=== PATIENT | female | born 1995 | race Caucasian/White ===

== ENCOUNTER 2021-01-23 12:17 | Emergency (ER) | payer BC, OTHER ==
[~2021-01-23] VITALS: Ht 167 cm; Wt 92.5 kg
--- NOTE | 2021-01-23 12:21 | ED General ---
General Stated Complaint: TACHY History of Present Illness Date Seen by Provider: Jan 23, 2021 Time Seen by Provider: 12:20 Initial Comments 25-year-old female sent from urgent care with concerns for nonspecific tachycardia. Patient went to urgent care because last night she had a fever, some body aches and not feeling well. Patient was tested negative for influenza, Covid and strep at urgent care. Patient's heart rate was tachycardic running from mid 1 teens to 130s. Patient denies any shortness of breath, chest pain, edema. Patient reports that she is feeling a lot better today. She just went to urgent care because she wanted to be checked out because she has a couple small children at home. Patient does have a history of PEs in the past due to trauma. Allergies and Home Medications Allergies Coded Allergies: No Known Drug Allergies (Unverified , 01/23/21) Patient Home Medication List Home Medication List Reviewed: Yes Review of Systems Review of Systems Constitutional: see HPI, fever, malaise EENTM: No ear pain, No throat pain Cardiovascular: No chest pain, No palpitations Gastrointestinal: no symptoms reported; No abdominal pain, No nausea, No vomiting Genitourinary: no symptoms reported Musculoskeletal: see HPI Skin: no symptoms reported; No rash Psychiatric/Neurological: Headache Hematologic/Lymphatic: No Symptoms Reported Immunological/Allergic: no symptoms reported Physical Exam Vital Signs Vital Signs - First Documented 01/23/21 12:19 Temp 36.9 Pulse 131 Resp 16 B/P (MAP) 137/66 (89) Pulse Ox 100 O2 Delivery Room Air Capillary Refill : Height, Weight, BMI Height: '" Weight: lbs. oz. kg; BMI Method: General Appearance: No Apparent Distress, WD/WN HEENT: PERRL/EOMI Neck: Non Tender, Supple Respiratory: Lungs Clear, Normal Breath Sounds Cardiovascular: No Edema, Normal Peripheral Pulses, Tachycardia Gastrointestinal: Non Tender, Soft Extremity: Normal Capillary Refill, Normal Inspection Neurologic/Psychiatric: Alert, Oriented x3, No Motor/Sensory Deficits, Normal Mood/Affect Skin: Normal Color, Warm/Dry Progress/Results/Core Measures Suspected Sepsis SIRS Temperature: Pulse: Respiratory Rate: Laboratory Tests 01/23/21 12:27: White Blood Count 15.5H Blood Pressure / Mean: Laboratory Tests 01/23/21 12:27: Creatinine 0.69, Platelet Count 286, Total Bilirubin 0.2 Results/Orders Lab Results Laboratory Tests Test 01/23/21 12:27 Range/Units White Blood Count 15.5 H 4.3-11.0 10^3/uL Red Blood Count 4.39 4.35-5.85 10^6/uL Hemoglobin 13.3 11.5-16.0 G/DL Hematocrit 40 35-52 % Mean Corpuscular Volume 92 80-99 FL Mean Corpuscular Hemoglobin 30 25-34 PG Mean Corpuscular Hemoglobin Concent 33 32-36 G/DL Red Cell Distribution Width 13.7 10.0-14.5 % Platelet Count 286 130-400 10^3/uL Mean Platelet Volume 11.1 H 7.4-10.4 FL Immature Granulocyte % (Auto) 0 % Neutrophils (%) (Auto) 81 H 42-75 % Lymphocytes (%) (Auto) 13 12-44 % Monocytes (%) (Auto) 5 0-12 % Eosinophils (%) (Auto) 0 0-10 % Basophils (%) (Auto) 0 0-10 % Neutrophils # (Auto) 12.5 H 1.8-7.8 X 10^3 Lymphocytes # (Auto) 2.1 1.0-4.0 X 10^3 Monocytes # (Auto) 0.8 0.0-1.0 X 10^3 Eosinophils # (Auto) 0.0 0.0-0.3 10^3/uL Basophils # (Auto) 0.1 0.0-0.1 10^3/uL Immature Granulocyte # (Auto) 0.1 0.0-0.1 10^3/uL Neutrophils % (Manual) 71 % Lymphocytes % (Manual) 15 % Monocytes % (Manual) 7 % Eosinophils % (Manual) 0 % Basophils % (Manual) 1 % Band Neutrophils 6 % D-Dimer 2.23 H 0.00-0.49 UG/ML Urine Color YELLOW Urine Clarity SLT CLOUDY Urine pH 6.5 5-9 Urine Specific [place] 1.015 L 1.016-1.022 Urine Protein NEGATIVE NEGATIVE Urine Glucose (UA) NEGATIVE NEGATIVE Urine Ketones NEGATIVE NEGATIVE Urine Nitrite NEGATIVE NEGATIVE Urine Bilirubin NEGATIVE NEGATIVE Urine Urobilinogen 0.2 < = 1.0 MG/DL Urine Leukocyte Esterase TRACE H NEGATIVE Urine RBC (Auto) 2+ H NEGATIVE Urine RBC NONE /HPF Urine WBC 0-2 /HPF Urine Squamous Epithelial Cells 2-5 /HPF Urine Crystals NONE /LPF Urine Bacteria TRACE /HPF Urine Casts NONE /LPF Urine Mucus NEGATIVE /LPF Urine Culture Indicated NO Urine Test NEGATIVE NEGATIVE Sodium Level 137 135-145 MMOL/L Potassium Level 3.8 3.6-5.0 MMOL/L Chloride Level 103 98-107 MMOL/L Carbon Dioxide Level 23 21-32 MMOL/L Anion Gap 11 5-14 MMOL/L Blood Urea Nitrogen 8 7-18 MG/DL Creatinine 0.69 0.60-1.30 MG/DL Estimat Glomerular Filtration Rate > 60 BUN/Creatinine Ratio 12 Glucose Level 96 70-105 MG/DL Calcium Level 9.0 8.5-10.1 MG/DL Corrected Calcium 8.8 8.5-10.1 MG/DL Magnesium Level 1.7 1.6-2.4 MG/DL Total Bilirubin 0.2 0.1-1.0 MG/DL Aspartate Amino Transf (AST/SGOT) 18 5-34 U/L Alanine Aminotransferase (ALT/SGPT) 20 0-55 U/L Alkaline Phosphatase 85 40-136 U/L Troponin I < 0.30 <0.30 NG/ML C-Reactive Protein 8.61 H <0.50 MG/DL Total Protein 7.9 6.4-8.2 GM/DL Albumin 4.2 3.2-4.5 GM/DL My Orders Orders - SOARES,BUCK L DO Cbc With Automated Diff (01/23/21 12:24) Comprehensive Metabolic Panel (01/23/21 12:24) Hcg,Qualitative Urine (01/23/21 12:24) Magnesium (01/23/21 12:24) Ua Culture If Indicated (01/23/21 12:24) Crp Fs (01/23/21 12:24) Troponin I Fs (01/23/21 12:30) Ekg Tracing (01/23/21 12:30) Monitor-Rhythm Ecg Trace Only (01/23/21 12:30) Chest Pa/Lat (2 View) (01/23/21 12:30) Manual Differential (01/23/21 12:27) Fibrin Degradation Products (01/23/21 12:43) Lactated Ringers (Lr 1000 Ml Iv Solution (01/23/21 12:43) Iohexol Injection (Omnipaque 350 Mg/Ml 1 (01/23/21 13:15) Received Contrast (Hold Metformin- Contr (01/23/21 13:15) Sodium Chloride Flush (Catheter Flush Sy (01/23/21 13:15) Ns (Ivpb) (Sodium Chloride 0.9% Ivpb Bag (01/23/21 13:15) Ct Angio Chest W (01/23/21 13:13) Medications Given in ED Current Medications Medications Dose Ordered Sig/Cris Route Start Time Stop Time Status Last Admin Dose Admin Iohexol 100 ml ONCE ONCE IV 01/23/21 13:15 01/23/21 13:20 DC 01/23/21 13:38 100 ML Sodium Chloride 10 ml NEEDED PRN IV 01/23/21 13:15 01/23/21 13:38 10 ML Sodium Chloride 100 ml ONCE ONCE IV 01/23/21 13:15 01/23/21 13:20 DC 01/23/21 13:38 100 ML Vital Signs/I&O 01/23/21 12:19 Temp 36.9 Pulse 131 Resp 16 B/P (MAP) 137/66 (89) Pulse Ox 100 O2 Delivery Room Air Capillary Refill : Progress Note : Progress Note Patient's tachycardia improved with some IV fluids. Patient with negative EKG, negative troponin negative CT chest protocol. Patient with elevated white count and CRP likely from a viral syndrome. Patient stable discharged home. She should use Tylenol, ibuprofen as needed for fever and chills, drink plenty of fluids. Follow-up with her primary care provider as needed ECG Initial ECG Impression Date: Jan 23, 2021 Initial ECG Impression Time: 12:27 Initial ECG Rate: 122 Initial ECG Rhythm: S.Tach Initial ECG Impression: Nonspecific Changes Comment no acute st elevation or findings Diagnostic Imaging Diagonstic Imaging: Xray Plain Films/CT/US/NM/MRI: chest Comments Date of Exam:01/23/21 CHEST PA/LAT (2 VIEW) INDICATION: Fever and chills and body aches. PA and lateral chest obtained at 12:42 p.m. FINDINGS: Heart and mediastinal silhouette are normal in appearance. The lungs are clear. There is no pneumothorax or pleural fluid. IMPRESSION: Negative chest. Diagonstic Imaging: CT Plain Films/CT/US/NM/MRI: chest Comments CT ANGIO CHEST W PROCEDURE: CT angiography of the chest with contrast. TECHNIQUE: Multiple contiguous axial images were obtained through the chest after uneventful bolus administration of intravenous contrast. 3D reconstructed CTA MIP acquisitions were also performed. Auto Exposure Controls were utilized during the CT exam to meet ALARA standards for radiation dose reduction. INDICATION: Elevated D-dimer. No prior studies are available for comparison. Evaluation of the pulmonary arterial system is without evidence of thromboembolism. No definite filling defects are seen within central, lobar or segmental branches. No pericardial or pleural fluid is identified. No pulmonary infiltrates, nodules or masses are seen. 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 There are several nodules in the left upper quadrant which could be secondary to splenosis. IMPRESSION: Unremarkable CT angiogram of the chest. There is no evidence of pulmonary embolism. Reviewed: Reviewed by Me, Reviewed/Discussed Departure Impression Primary Impression: Acute viral syndrome Disposition: 01 HOME, SELF-CARE Condition: Stable Departure-Patient Inst. Referrals: MANUELITO ALEMAN MD (PCP/Family) Primary Care Physician Patient Instructions: Viral Syndrome (DC) Add. Discharge Instructions: Drink plenty of fluids Tylenol or ibuprofen as needed for fever Follow-up with your primary care provider in 4 to 5 days if symptoms are not improving BUCK SOARES DO Jan 23, 2021 12:20
[2021-01-23 12:41] LABS: HEMOGLOBIN 13.3 G/DL (11.5-16.0); MEAN CORPUSCULAR HEMOGLOBIN 30 PG (25-34); WHITE BLOOD COUNT 15.5 10^3/uL (4.3-11.0)
[2021-01-23 12:42] LABS: BASOPHILS # (AUTO) 0.1 10^3/uL (0.0-0.1); BASOPHILS % (AUTO) 0 % (0-10); EOSINOPHILS % (AUTO) 0 % (0-10); HEMATOCRIT 40 % (35-52); LYMPHOCYTES # (AUTO) 2.1 X 10^3 (1.0-4.0); LYMPHOCYTES % (AUTO) 13 % (12-44); MEAN CORPUSCULAR HGB CONC 33 G/DL (32-36); MEAN CORPUSCULAR VOLUME 92 FL (80-99); MEAN PLATELET VOLUME 11.1 FL (7.4-10.4); MONOCYTES # (AUTO) 0.8 X 10^3 (0.0-1.0); MONOCYTES % (AUTO) 5 % (0-12); NEUTROPHILS # (AUTO) 12.5 X 10^3 (1.8-7.8); NEUTROPHILS % (AUTO) 81 % (42-75); PLATELET COUNT 286 10^3/uL (130-400)
[2021-01-23] MEDS ORDERED: LACTATED RINGERS 1,000 ML IV STA (12:43)
[2021-01-23 12:58] LABS: CLARITY,URINE SLT CLOUDY; COLOR,URINE YELLOW; GLUCOSE, URINE (UA) NEGATIVE (NEGATIVE); PH,URINE 6.5 (5-9); PROTEIN,URINE NEGATIVE (NEGATIVE)
[2021-01-23 12:59] LABS: BACTERIA,URINE TRACE /HPF; BILIRUBIN,URINE NEGATIVE (NEGATIVE); KETONES,URINE NEGATIVE (NEGATIVE); LEUKOCYTE ESTERASE ,URINE TRACE (NEGATIVE); NITRITE,URINE NEGATIVE (NEGATIVE); WBC,URINE 0-2 /HPF
[2021-01-23 13:00] LABS: CARBON DIOXIDE 23 MMOL/L (21-32); CHLORIDE 103 MMOL/L (98-107); POTASSIUM 3.8 MMOL/L (3.6-5.0); SODIUM 137 MMOL/L (135-145)
[2021-01-23 13:01] LABS: ALANINE AMINOTRANSFERASE 20 U/L (0-55); ALKALINE PHOSPHATASE 85 U/L (40-136); BILIRUBIN,TOTAL 0.2 MG/DL (0.1-1.0); BUN/CREATININE RATIO 12; CREATININE SERUM 0.69 MG/DL (0.60-1.30); GFR ESTIMATED > 60; GLUCOSE 96 MG/DL (70-105); MAGNESIUM 1.7 MG/DL (1.6-2.4); TOTAL PROTEIN 7.9 GM/DL (6.4-8.2)
[2021-01-23 13:02] LABS: ALBUMIN 4.2 GM/DL (3.2-4.5)
--- NOTE | 2021-01-23 13:03 | Diagnostic Imaging Report ---
INDICATION: Fever and chills and body aches. PA and lateral chest obtained at 12:42 p.m. FINDINGS: Heart and mediastinal silhouette are normal in appearance. The lungs are clear. There is no pneumothorax or pleural fluid. IMPRESSION: Negative chest. Dictated by: Dictated on workstation # [id number]
[2021-01-23 13:07] LABS: BAND NEUTROPHILS 6 %; BASOPHILS % (MANUAL) 1 %; EOSINOPHILS % (MANUAL) 0 %; LYMPHOCYTES % (MANUAL) 15 %; MONOCYTES % (MANUAL) 7 %; NEUTROPHILS % (MANUAL) 71 %
[2021-01-23] MEDS ORDERED: HOLD METFORMIN - RECEIVED CONTRAST 20 ML VIAL IV SCH (13:15)
[2021-01-23] MEDS ORDERED: CATHETER FLUSH 10 ML SYR IV PRN (13:15)
[2021-01-23] MEDS ORDERED: NS 100 ML (IVPB) BAG IV ONE (13:15)
[2021-01-23] MEDS ORDERED: IOHEXOL 350 MG/ML 100 ML (OMNIPAQUE 350) VIAL IV ONE (13:15)
--- NOTE | 2021-01-23 13:51 | Diagnostic Imaging Report ---
PROCEDURE: CT angiography of the chest with contrast. TECHNIQUE: Multiple contiguous axial images were obtained through the chest after uneventful bolus administration of intravenous contrast. 3D reconstructed CTA MIP acquisitions were also performed. Auto Exposure Controls were utilized during the CT exam to meet ALARA standards for radiation dose reduction. INDICATION: Elevated D-dimer. No prior studies are available for comparison. Evaluation of the pulmonary arterial system is without evidence of thromboembolism. No definite filling defects are seen within central, lobar or segmental branches. No pericardial or pleural fluid is identified. No pulmonary infiltrates, nodules or masses are seen. 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 There are several nodules in the left upper quadrant which could be secondary to splenosis. IMPRESSION: Unremarkable CT angiogram of the chest. There is no evidence of pulmonary embolism. Dictated by: Dictated on workstation # [id number]
[2021-01-23 14:09] VITALS: BP 133/78
== END 2021-01-23 14:11 | disposition home or self-care (01) ==
LOC: ER FS 12:19
DX: B34.9 Viral infection, unspecified (principal); Z20.822 Contact with and (suspected) exposure to COVID-19
CPT/HCPCS: 36415; 71046; 71275; 80053; 81000; 83735; 84484; 84703; 85007; 85027; 85379; 86141; 93005; 93041